=== PATIENT | female | born 1980 | race Asian ===

== ENCOUNTER 2019-09-23 15:48 | Emergency (ER) | payer BC ==
[~2019-09-23] VITALS: Ht 165.1 cm; Wt 58.1 kg
[2019-09-23 15:56] VITALS: BP 123/78; Ht 165.1 cm; Wt 58.1 kg
== END 2019-09-23 17:58 | disposition left against medical advice (07) ==
LOC: ED 15:48
DX: F41.9 Anxiety disorder, unspecified (principal); F43.9 Reaction to severe stress, unspecified; Z98.890 Other specified postprocedural states; Z88.8 Allergy status to other drugs, medicaments and biological substances